=== PATIENT | male | born 1940 | race Caucasian/White ===

== ENCOUNTER 2020-11-20 21:16 | Emergency (ER) | payer MEDICARE, BC ==
[~2020-11-20] VITALS: Ht 170.2 cm; Wt 78.6 kg
[~2020-11-20 21:16] MED LIST: ALLO100T PO; ASPI-1264 PO; ATEN50TA PO; DIGO250T2 PO; ESOM40CA49 PO; HYDR-3972 PO; HYDR12.5 PO; LISI40TA13 PO
[2020-11-20 21:53] VITALS: BP 156/82
[2020-11-20 22:52] LABS: BASOPHILS # (AUTO) 0.1 X10'3 (0-0.2); BASOPHILS % (AUTO) 0.6 % (0-1); EOSINOPHILS # (AUTO) 0.5 X10'3 (0-0.9); EOSINOPHILS % (AUTO) 5.7 % (0-6); HEMATOCRIT 44.4 % (42.0-52.0); HEMOGLOBIN 15.2 g/dl (14.0-17.9); LYMPHOCYTES # (AUTO) 2.2 X10'3 (1.1-4.8); LYMPHOCYTES % (AUTO) 27.1 % (21-51); MEAN CORPUSCULAR HEMOGLOBIN 31.2 PG (27.0-31.0); MEAN CORPUSCULAR HGB CONC 34.4 g/dL (33.0-36.5); MEAN CORPUSCULAR VOLUME 90.6 FL (78-98); MEAN PLATELET VOLUME 7.7 FL (7.4-10.4); MONOCYTES # (AUTO) 0.6 X10'3 (0-0.9); MONOCYTES % (AUTO) 7.4 % (2-12); NEUTROPHILS # (AUTO) 4.7 X10'3 (1.8-7.7); NEUTROPHILS % (AUTO) 59.2 % (42-75); PLATELET COUNT 161 X10'3 (140-440); RED BLOOD COUNT 4.89 X10'6 (4.70-6.10); RED CELL DISTRIBUTION WIDTH 13.5 % (11.5-14.5)
[2020-11-20 23:04] LABS: ALANINE AMINOTRANSFERASE 113 U/L (12-78); ALBUMIN 3.7 G/DL (3.4-5.0); ALBUMIN/GLOBULIN RATIO 0.9 (1.1-1.5); ALKALINE PHOSPHATASE 75 IU/L (46-116); ANION GAP 14 (8-16); ASPARTATE AMINO TRANSFERASE 76 U/L (10-37); BILIRUBIN,TOTAL 0.4 MG/DL (0.1-1.0); BLOOD UREA NITROGEN 14 MG/DL (7-18); BUN/CREATININE RATIO 15.1 (5.4-32.0); CALCIUM 9.3 MG/DL (8.5-10.1); CHLORIDE 101 MMOL/L (99-107); CREATININE 0.93 MG/DL (0.60-1.10); GLUCOSE 324 MG/DL (70-104); POTASSIUM 4.8 MMOL/L (3.5-5.1); SODIUM 139 MMOL/L (135-145); TOTAL CARBON DIOXIDE 23.9 MMOL/L (24-32); TOTAL PROTEIN 7.8 G/DL (6.4-8.2); eGFR 79 ML/MIN
[2020-11-20 23:08] LABS: TROPONIN I < 0.04 NG/ML (0.0-0.05)
== END 2020-11-20 23:56 | disposition left against medical advice (07) ==
LOC: ER 21:17
DX: R04.0 Epistaxis (principal); Z53.21 Procedure and treatment not carried out due to patient leaving prior to being seen by health care provider
CPT/HCPCS: 36415; 80053; 84484; 85025

== ENCOUNTER 2021-01-14 18:35 | Emergency (ER) | payer MEDICARE, BC ==
[~2021-01-14] VITALS: Ht 170.2 cm; Wt 79.1 kg
[2021-01-14 18:40] VITALS: BP 170/86
[2021-01-14] MEDS ORDERED: oxymetazoline 15 ML nasal spray NS ONE (18:45)
[2021-01-14] MEDS ORDERED: tranexamic acid 100mg/ml inj. TP ONE (18:45)
[2021-01-14] MEDS ORDERED: LIDOcaine Viscous 15ml cup TP ONE (18:45)
== END 2021-01-14 19:52 | disposition home or self-care (01) ==
LOC: ER 18:36
DX: R04.0 Epistaxis (principal); Z79.82 Long term (current) use of aspirin; Z79.899 Other long term (current) drug therapy
CPT/HCPCS: 99284; J3490

== ENCOUNTER 2021-10-26 20:03 | Inpatient (IN) | payer MEDICARE, BC ==
[~2021-10-26] VITALS: Ht 170.2 cm; Wt 83.0 kg
[2021-10-26 20:57] LABS: BASOPHILS # (AUTO) 0.1 X10'3 (0-0.2); BASOPHILS % (AUTO) 0.4 % (0-1); EOSINOPHILS # (AUTO) 0.1 X10'3 (0-0.9); EOSINOPHILS % (AUTO) 0.6 % (0-6); HEMATOCRIT 44.2 % (42.0-52.0); HEMOGLOBIN 14.8 g/dl (14.0-17.9); LYMPHOCYTES # (AUTO) 1.8 X10'3 (1.1-4.8); LYMPHOCYTES % (AUTO) 13.7 % (21-51); MEAN CORPUSCULAR HEMOGLOBIN 30.2 PG (27.0-31.0); MEAN CORPUSCULAR HGB CONC 33.3 g/dL (33.0-36.5); MEAN CORPUSCULAR VOLUME 90.5 FL (78-98); MEAN PLATELET VOLUME 7.5 FL (7.4-10.4); MONOCYTES # (AUTO) 0.7 X10'3 (0-0.9); MONOCYTES % (AUTO) 5.2 % (2-12); NEUTROPHILS # (AUTO) 10.6 X10'3 (1.8-7.7); NEUTROPHILS % (AUTO) 80.1 % (42-75); PLATELET COUNT 149 X10'3 (140-440); RED BLOOD COUNT 4.89 X10'6 (4.70-6.10); RED CELL DISTRIBUTION WIDTH 14.4 % (11.5-14.5); WHITE BLOOD COUNT 13.2 X10'3 (4.5-11.0)
[2021-10-26 21:09] LABS: ALANINE AMINOTRANSFERASE 74 U/L (12-78); ALBUMIN 3.7 G/DL (3.4-5.0); ALBUMIN/GLOBULIN RATIO 1.1 (1.1-1.5); ALKALINE PHOSPHATASE 59 IU/L (46-116); ANION GAP 16 (8-16); ASPARTATE AMINO TRANSFERASE 46 U/L (10-37); BILIRUBIN,TOTAL 0.3 MG/DL (0.1-1.0); BLOOD UREA NITROGEN 14 MG/DL (7-18); BUN/CREATININE RATIO 16.7 (5.4-32.0); CALCIUM 8.6 MG/DL (8.5-10.1); CHLORIDE 100 MMOL/L (99-107); CREATININE 0.84 MG/DL (0.60-1.10); GLUCOSE 246 MG/DL (70-104); POTASSIUM 3.3 MMOL/L (3.5-5.1); SODIUM 139 MMOL/L (135-145); TOTAL PROTEIN 7.2 G/DL (6.4-8.2); eGFR 88 ML/MIN
[2021-10-26 21:17] LABS: MAGNESIUM 1.3 MG/DL (1.5-2.4)
[2021-10-26] MEDS: magnesium 2GM in 50ml NS 50 ML IV SCH ×2 (21:55→22:55)
[2021-10-26] MEDS ORDERED: metoprolol tartrate 50mg tablet PO ONE (23:10)
[2021-10-27] VITALS (9 sets, daily range): BP systolic 137–172; BP diastolic 65–84
[2021-10-27 01:44] LABS: CLARITY,URINE CLEAR (Clear); COLOR,URINE YELLOW (Yellow); GLUCOSE, URINE >=1000 mg/dl (Neg); KETONES,URINE 40 mg/dl (Neg); LEUKOCYTE ESTERASE ,URINE NEGATIVE (Neg); NITRITES, URINE NEGATIVE (Neg); OCCULT BLOOD,URINE NEGATIVE (Neg); PROTEIN,URINE NEGATIVE (Neg); UROBILINOGEN,URINE 0.2 E.U/dL (0.2-1.0)
[2021-10-27 01:45] LABS: UA COLLECTION TYPE URINAL
[2021-10-27 02:13] LABS: BACTERIA,URINE NONE SEEN /HPF (Neg); RBC,URINE 0-2 /HPF (0-2); SQUAMOUS EPITHELIAL CELL,UR FEW /LPF (FEW); WBC,URINE NONE SEEN /HPF (0-4)
[2021-10-27] MEDS ORDERED: normal saline 1000ml 1,000 ML IV SCH (02:15)
[2021-10-27] MEDS ORDERED: potassium CL 10mEq/100ml bag 100 ML IV PRN (02:15)
[2021-10-27] MEDS ORDERED: glucagon, human recombinant 1mg kit SUBCUT PRN ×2 (02:15→14:15)
[2021-10-27] MEDS ORDERED: DEXTROSE 15 GM of carb/4 tabs (each vial/BOTTLE has 4 tablets) PO PRN ×4 (02:15→14:15)
[2021-10-27] MEDS ORDERED: POTASSIUM BICARB 20meq eff tab 20 MEQ TABLET.EFF PO PRN ×2 (02:15)
[2021-10-27] MEDS ORDERED: ondansetron 4mg rapidly disintigrating tab PO PRN (02:15)
[2021-10-27] MEDS ORDERED: HYDROcodone/acetaminophen 5mg/325mg tablet PO PRN (02:15)
[2021-10-27] MEDS ORDERED: mag hydrox/Alum hydrox/simeth 30ml oral suspension PO PRN (02:15)
[2021-10-27] MEDS ORDERED: morphine 2 MG/ML inj. syringe IV PRN ×2 (02:15)
[2021-10-27] MEDS ORDERED: magnesium Cl slow-release 64mg tablet PO PRN (02:15)
[2021-10-27] MEDS ORDERED: insulin Lispro (HumaLOG) vial - multi-dose SQ SCH ×2 (02:15→14:15)
[2021-10-27] MEDS ORDERED: MESSAGE TO PHARMACY PO ONE ×2 (02:15→14:15)
[2021-10-27] MEDS ORDERED: HYDROcodone/acetaminophen 10/325mg tab PO PRN (02:15)
[2021-10-27] MEDS ORDERED: magnesium hydroxide 30ml (MOM) UD suspension PO PRN (02:15)
[2021-10-27] MEDS ORDERED: diphenhydrAMINE 50 mg/ml inj IV PRN (02:15)
[2021-10-27] MEDS ORDERED: acetaminophen 325mg tablet PO PRN (02:15)
[2021-10-27] MEDS ORDERED: ondansetron/PF 4mg/2ml inj IV PRN (02:15)
[2021-10-27] MEDS ORDERED: bisacodyl 10mg suppository rectal RC PRN (02:15)
[2021-10-27] MEDS ORDERED: diphenhydrAMINE 25mg capsule PO PRN (02:15)
[2021-10-27] MEDS ORDERED: dextrose 50%-water 50ml dispensing syringe IV PRN ×4 (02:15→14:15)
[2021-10-27] MEDS ORDERED: magnesium 2GM in 50ml NS 50 ML IV PRN (02:15)
[2021-10-27] MEDS ORDERED: magnesium 4gm in 100ml NS 100 ML IV PRN (02:15)
[2021-10-27] MEDS ORDERED: hydrALAZINE 20mg/ml inj. IV PRN (02:20)
[2021-10-27] MEDS ORDERED: metoprolol tartrate 1mg/ml inj IV PRN (02:20)
[2021-10-27] MEDS ORDERED: nitroGLYCERIN 0.4mg SUBLingual tab SL PRN (02:20)
[2021-10-27] MEDS ORDERED: aminophylline 500mg/20ml vial IV PRN (02:20)
[2021-10-27] MEDS ORDERED: regadenoson 0.4mg/5ml syringe IV PRN (02:20)
[2021-10-27] MEDS ORDERED: METF-900 PO (03:18)
[2021-10-27] MEDS ORDERED: METO-384 PO (03:18)
[2021-10-27] MEDS ORDERED: ATOR40TA72 PO (03:18)
[2021-10-27] MEDS ORDERED: SITA100T15 PO (03:18)
[2021-10-27] MEDS ORDERED: DULA1.5P SQ (03:23)
[2021-10-27] MEDS ORDERED: ASPI-1265 PO (03:26)
[2021-10-27 04:40] LABS: MAGNESIUM 1.3 MG/DL (1.5-2.4); PHOSPHORUS 3.7 MG/DL (2.3-4.5); POTASSIUM 3.9 MMOL/L (3.5-5.1)
[2021-10-27] MEDS: K and/or MAG REPLACEMENT MC SCH ×2 (08:00→20:00)
[2021-10-27] MEDS: docusate sod 100mg capsule PO SCH ×2 (08:00→22:01)
--- NOTE | 2021-10-27 09:15 | NUR ---
PT TAKEN TO [facility].
[2021-10-27] MEDS ORDERED: aminophylline inj. 0 ML IV ONE (09:55)
--- NOTE | 2021-10-27 10:56 | NUR ---
Assumed care of pt. Morning helds temporarily held for [facility].
--- NOTE | 2021-10-27 11:12 | NUR ---
Assumed care of patient at this time after recieving report. Pt. returned from [employer] via [employer]. placed on monitor and BP.
[2021-10-27] MEDS: heparin, porcine 5000 units/ml vial SQ SCH ×2 (11:33→21:05)
[2021-10-27] MEDS: nitroGLYCERIN 0.4mg/hour patch TD SCH (11:40)
--- NOTE | 2021-10-27 12:30 | NUR ---
Spoke to hospitalist regarding pt. States that the pt in on the fence about staying another night. He will discuss decision with at bedside and let RN know. Will page Hospitalist when decision is made.
--- NOTE | 2021-10-27 13:08 | NUR ---
came to RN station. Requests pt be gait tested with assistance to see how he is feeling, as they feel this is a factor in whether he feels the need to stay.
[2021-10-27 13:10] LABS: APTT 27 SECONDS (22-32)
--- NOTE | 2021-10-27 13:11 | NUR ---
Gait test attempted with two person standby; pt with unsteady gait, requiring moderate assistance. Decision was made with shared decision making that he would like to remain in the hospital. Hospitalist to be paged.
[2021-10-27] MEDS ORDERED: iohexol 350MG/ML 100ml bottle IV ONE (14:40)
--- NOTE | 2021-10-27 16:55 | NUR ---
PT. GOT OUT OF BED WITHOUT ASSIST, CALLLIGHT WITHIN REACH, SIDERAILS UP X2. PT. OUT IN HALLWAY, UNSTEADY ON FEET ASKING IF HE IS GOING HOME. ASSISTED BACK TO BED, ANSWERS QUESTIONS APPROPRIATELY, A&O X4. INFORMED DISCUSSED EARLIER THAT HE IS BEING ADMITTED, WAITING FOR BED ASSIGNMENT.
[2021-10-27] MEDS ORDERED: insulin glargine (Lantus) pen - multi-dose SQ SCH (21:00)
[2021-10-27] MEDS ORDERED: allopurinol 100mg tablet PO SCH (21:00)
[2021-10-27] MEDS ORDERED: temazepam 15mg capsule PO PRN (21:00)
[2021-10-28 02:00] VITALS: BP 143/71
[2021-10-28 06:00] VITALS: BP 143/77
[2021-10-28 06:44] LABS: BASOPHILS % (AUTO) 0.2 % (0-1); EOSINOPHILS # (AUTO) 0.1 X10'3 (0-0.9); EOSINOPHILS % (AUTO) 0.4 % (0-6); HEMATOCRIT 42.1 % (42.0-52.0); HEMOGLOBIN 14.2 g/dl (14.0-17.9); LYMPHOCYTES # (AUTO) 1.4 X10'3 (1.1-4.8); LYMPHOCYTES % (AUTO) 11.5 % (21-51); MEAN CORPUSCULAR HEMOGLOBIN 30.1 PG (27.0-31.0); MEAN CORPUSCULAR HGB CONC 33.7 g/dL (33.0-36.5); MEAN CORPUSCULAR VOLUME 89.3 FL (78-98); MEAN PLATELET VOLUME 7.7 FL (7.4-10.4); MONOCYTES # (AUTO) 0.9 X10'3 (0-0.9); MONOCYTES % (AUTO) 7.4 % (2-12); NEUTROPHILS # (AUTO) 9.7 X10'3 (1.8-7.7); NEUTROPHILS % (AUTO) 80.5 % (42-75); PLATELET COUNT 169 X10'3 (140-440); RED BLOOD COUNT 4.71 X10'6 (4.70-6.10); RED CELL DISTRIBUTION WIDTH 14.5 % (11.5-14.5); WHITE BLOOD COUNT 12.1 X10'3 (4.5-11.0)
[2021-10-28 06:58] LABS: ALANINE AMINOTRANSFERASE 66 U/L (12-78); ALBUMIN 3.6 G/DL (3.4-5.0); ALBUMIN/GLOBULIN RATIO 1.1 (1.1-1.5); ALKALINE PHOSPHATASE 55 IU/L (46-116); ANION GAP 11 (8-16); ASPARTATE AMINO TRANSFERASE 43 U/L (10-37); BILIRUBIN,TOTAL 0.7 MG/DL (0.1-1.0); BLOOD UREA NITROGEN 14 MG/DL (7-18); BUN/CREATININE RATIO 22.2 (5.4-32.0); CALCIUM 8.7 MG/DL (8.5-10.1); CHLORIDE 101 MMOL/L (99-107); CHOL/HDL RATIO 3.3 (0.00-4.99); CHOLESTEROL 166 MG/DL (0-200); CREATININE 0.63 MG/DL (0.60-1.10); GLUCOSE 159 MG/DL (70-104); HDL CHOLESTEROL 50 MG/DL (35-60); LDL CHOLESTEROL 85 MG/DL (50-100); POTASSIUM 3.3 MMOL/L (3.5-5.1); SODIUM 138 MMOL/L (135-145); TOTAL CARBON DIOXIDE 25.9 MMOL/L (24-32); TOTAL PROTEIN 6.9 G/DL (6.4-8.2); TRIGLYCERIDES 190 MG/DL (20-135); eGFR > 90 ML/MIN
[2021-10-28] MEDS ORDERED: metoprolol succinate 25mg (24-HOUR) SR. Tablet PO SCH (08:00)
[2021-10-28] MEDS ORDERED: digoxin 250mcg (0.25mg) tablet PO SCH (08:00)
[2021-10-28] MEDS ORDERED: lisinopril 20mg tablet PO SCH (08:00)
[2021-10-28] MEDS ORDERED: atorvastatin 20mg tablet PO SCH (08:00)
[2021-10-28] MEDS: K and/or MAG REPLACEMENT MC SCH (08:21)
[2021-10-28] MEDS: heparin, porcine 5000 units/ml vial SQ SCH (08:34)
[2021-10-28] MEDS: docusate sod 100mg capsule PO SCH (08:36)
[2021-10-28] MEDS: nitroGLYCERIN 0.4mg/hour patch TD SCH (08:37)
--- NOTE | 2021-10-28 09:19 | NUR ---
DM consult: Pt w/ hx of DM A1c 7.3 per EMR. Fair control for age, written DM ed w/ RD contact info placed in pt chart. Addendum: 10/28/21 at [address] Amended: Links added.
[2021-10-28 11:00] VITALS: BP 132/74
--- NOTE | 2021-10-28 16:07 | NUR ---
Pt. discharged with and son to private vehicle, home. Pt. left axox4 with IV access taken out, discharge paperwork teaching complete and telemetry off.
[2021-10-29] MEDS ORDERED: pantoprazole 40mg Tablet.DR PO SCH (08:00)
[2021-10-29] MEDS ORDERED: aspirin 81mg tab.chew PO SCH (08:00)
== END 2021-10-28 15:45 | disposition home or self-care (01) | DRG 312 ==
LOC: ER 20:04 → ED HOLD 10-27 02:16 → EDBEDREQ 10-27 20:17 → PCU 3S 10-27 21:38
PROVIDERS: ADMIT Family Medicine; ATTEND Family Medicine
PROC: 4A02XM4 Measurement of Cardiac Total Activity, External Approach (ICD-10-PCS; principal; 2021-10-27)
PROC: 3E033HZ Introduction of Radioactive Substance into Peripheral Vein, Percutaneous Approach (ICD-10-PCS; 2021-10-27)
PROC: B3251ZZ Computerized Tomography (CT Scan) of Bilateral Common Carotid Arteries using Low Osmolar Contrast (ICD-10-PCS; 2021-10-27)
PROC: B32G1ZZ Computerized Tomography (CT Scan) of Bilateral Vertebral Arteries using Low Osmolar Contrast (ICD-10-PCS; 2021-10-27)
PROC: B32R1ZZ Computerized Tomography (CT Scan) of Intracranial Arteries using Low Osmolar Contrast (ICD-10-PCS; 2021-10-27)
PROC: B3281ZZ Computerized Tomography (CT Scan) of Bilateral Internal Carotid Arteries using Low Osmolar Contrast (ICD-10-PCS; 2021-10-27)
DX: R55 Syncope and collapse (principal); I50.22 Chronic systolic (congestive) heart failure; I13.0 Hypertensive heart and chronic kidney disease with heart failure and stage 1 through stage 4 chronic kidney disease, or unspecified chronic kidney disease; E78.00 Pure hypercholesterolemia, unspecified; E83.42 Hypomagnesemia; E87.6 Hypokalemia; R00.2 Palpitations; W18.39XA Other fall on same level, initial encounter; Y93.01 Activity, walking, marching and hiking; R07.9 Chest pain, unspecified; E11.22 Type 2 diabetes mellitus with diabetic chronic kidney disease; N18.9 Chronic kidney disease, unspecified; I49.9 Cardiac arrhythmia, unspecified; I65.22 Occlusion and stenosis of left carotid artery; K21.9 Gastro-esophageal reflux disease without esophagitis; M10.9 Gout, unspecified; Z79.82 Long term (current) use of aspirin; Z79.84 Long term (current) use of oral hypoglycemic drugs; Z79.899 Other long term (current) drug therapy; Z85.46 Personal history of malignant neoplasm of prostate; Z87.891 Personal history of nicotine dependence; Y92.090 Kitchen in other non-institutional residence as the place of occurrence of the external cause; Y99.8 Other external cause status
CPT/HCPCS: 36415; 70450; 70496; 70498; 70551; 71045; 78452; 80053; 80061; 80162; 81001; 82948; 83036; 83735; 83880; 84100; 84132; 84484; 85025; 85379; 85610; 85730; 87081; 93005; 93017; 96365; 99285; A9500; G0378; J0280; J1644; J1815; J2785; J3475; J3490; J7030; Q9967